=== PATIENT | female | born 1990 | race American Indian/Alaskan Native ===

== ENCOUNTER 2018-11-30 22:15 | Emergency (ER) | payer MEDICAID ==
[2018-11-30 22:28] VITALS: BP 121/72
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
[2018-12-01] MEDS ORDERED: XYLOCAINE 2%/EPI 1:100,000 INFILTRATI ONE (03:09)
[2018-12-01] MEDS ORDERED: BOOSTRIX IM ONE (03:10)
[2018-12-01] MEDS ORDERED: ZOFRAN ODT PO ONE (03:55)
[2018-12-01] MEDS ORDERED: ZOFRAN ODT ONE (03:55)
[2018-12-01] MEDS ORDERED: TRIPLE ANTIBIOTIC TP ONE (04:18)
[2018-12-01] MEDS ORDERED: LIDOCAINE VISCOUS 2% MM NR (04:30)
== END 2018-12-01 05:02 | disposition home or self-care (01) ==
LOC: ED 22:15
DX: S81.011A Laceration without foreign body, right knee, initial encounter (principal); S86.911A Strain of unspecified muscle(s) and tendon(s) at lower leg level, right leg, initial encounter; Z88.6 Allergy status to analgesic agent; V89.2XXA Person injured in unspecified motor-vehicle accident, traffic, initial encounter; Y93.89 Activity, other specified; Y92.488 Other paved roadways as the place of occurrence of the external cause; Y99.8 Other external cause status
CPT/HCPCS: 90471; 90715; A6250; Q0162